=== PATIENT | male | born 1995 | race African-American/Black ===

== ENCOUNTER 2018-07-11 21:27 | Emergency (ER) | payer OTHER ==
[~2018-07-11] VITALS: Ht 170.2 cm; Wt 72.6 kg
[2018-07-11 21:39] VITALS: BP 105/59
[2018-07-11] MEDS ORDERED: AMOXICILLIN/CLAVUL 875 MG TAB PO ONE (22:45)
== END 2018-07-11 22:56 | disposition home or self-care (01) ==
LOC: ER 21:32
DX: S51.852A Open bite of left forearm, initial encounter (principal); S51.851A Open bite of right forearm, initial encounter; W54.0XXA Bitten by dog, initial encounter; Y93.89 Activity, other specified; Y99.8 Other external cause status; Y92.89 Other specified places as the place of occurrence of the external cause